=== PATIENT | female | born 1970 | race Caucasian/White ===

== ENCOUNTER 2018-04-23 14:50 | Emergency (ER) | payer OTHER ==
[~2018-04-23] VITALS: Ht 157.5 cm; Wt 90.0 kg
[~2018-04-23 14:50] MED LIST: ACETAMINOPHEN-1 EAC1 PO; ADVAIR 100-501 EACH INH; ADVAIR 250-501 EACH IH; ADVAIR 500-501 EACH INH; ADVAIR HFA 230M12 GM INH; ALBUTEROL INHAL17 GM IH; ALBUTEROL2.5 MG/0.1 INH; ALBUTEROL2.5 MG/0.5; ALPRAZOLAM ER1 MG PO; AMOXICILLIN500 M1 PO; ANUSOL-HC30 GM RC; ANUSOL1 EACH RC; ATENOLOL 50 MG50 M1 PO; ATENOLOL 50MG T50 MG PO; BACTRIM DS TAB1 EACH PO; BACTROBAN22 GM TP; CARISOPRODOL 3350 MG PO; CELEXA20 MG PO; CIPRO500 MG PO; CITRUCEL CLEAR539 G1 PO; CLEOCIN HCL300 MG PO; DELZICOL400 MG PO; DESYREL150 MG PO; DOXEPIN 10 MG C10 M1 PO; DOXYCYCLINE 10100 MG PO; ESKALITH300 MG; FLAGYL500 MG PO; FLEXERIL PO; HEMORRHOID OINT60 G1 RC; HIBICLENS120 ML TP; HYDROCODON-ACE1 EAC7 PO; HYDROCODONE-AP1 EAC6 PO; IBUPROFEN 800800 M1 PO; KEFLEX500 MG PO; LEVAQUIN 500 M500 M2 PO; LEVOTHYROXIN0.025 M1 PG; LEVOTHYROXIN0.025 MG PO; LISINOPRIL10 MG PO; LORTAB 5 MG/5001 TA1 PO; MEDROLDOSEPACK PO; NAPROSYN500 MG PO; NEW BP MED; NITRO-BID30 GM RECTAL; NOHOMEMEDICATIONS; NORCO 10-325 T1 EACH; NORCO 5-325 TA1 EAC1 PO; NORCO 5-325 TA1 EACH PO; NORFLEX100 MG PO; OXCARBAZEPINE; PENICILLIN VK250 MG PO; PENICILLIN VK500 M1 PO; PENICILLIN VK500 MG PO; PERCOCET 10-321 EACH PO; PERCOCET 5-3251 EACH PO; PRAZOSIN 1 MG CA1 M1 PO; PREDNISONE 10 M10 M1 PO; PREDNISONE 10 M10 MG PO; PREDNISONE 20 M20 M1 PO; PREDNISONE 20 M20 MG PO; PROAIR HFA8.5 GM; PROAIR HFA8.5 GM INH; PROTONIX40 M1 PO; PROTONIX40 MG PO; PROVENTIL HFA6.7 G1 INH; ROBAXIN 750 MG750 M1 PO; SEREVENT DISKU50 MCG IH; SYMBICORT; SYNTHROID25 MCG PO; TESSALON PERLE100 MG PO; TIROSINT75 MCG PO; TOPAMAX 100 MG100 MG PO; TOPAMAX50 MG PO; TORADOL 10 MG T10 MG PO; TRAMADOL 50 MG50 MG PO; TRAZODONE 150150 M1 PO; ULTRAM 50MG TAB50 MG PO; VALIUM5 MG PO; VANCOCIN 125 M125 M1 PO; VENTOLIN HFA 1818 GM; VENTOLIN HFA 1818 GM INH; XANAX 0.25 MG0.25 MG PO; XANAX 0.5 MG0.5 MG PO; XANAX XR1 MG PO; XANAX1 MG PO; ZANTAC 150MG T150 M1 PO; ZANTAC 150MG T150 MG PO; ZOFRAN ODT4 MG PO; ZPAK PO; [UNRECOGNIZED DRUG - REMARK] PO
[2018-04-23 15:06] LABS: ABSOLUTE EOSINOPHILS 0.2 thou/uL (0.0-0.7); EOSINOPHILS 3.7 %; HEMOGLOBIN 13.6 gm/dL (12.0-15.0); MCH 31.3 pg (26.0-34.0)
[2018-04-23 15:08] LABS: ABSOLUTE BASOPHILS 0.1 thou/uL (0.0-0.2); ABSOLUTE LYMPHOCYTES 2.7 thou/uL (0.8-5.3); ABSOLUTE MONOCYTES 0.4 thou/uL (0.0-1.2); ABSOLUTE NEUTROPHILS 3.1 thou/uL (1.6-8.1); BASOPHILS 1.5 %; HEMATOCRIT 40.8 % (37.0-47.0); LYMPHOCYTES 41.8 %; MCHC 33.3 g/dL (28.0-37.0); MCV 93.9 fL (80.0-100.0); MONOCYTES 5.7 %; MPV 8.1 fl. (7.2-11.1); NUCLEATED RBCS 0 /100WBC; PLATELET COUNT* 156 thou/uL (150-400); POLYS 47.3 %; RBC 4.35 mil/uL (4.20-5.00); RDW-CV 17.2 % (10.5-14.5); WBC 6.6 thou/uL (4.0-11.0)
[2018-04-23 15:12] LABS: CALCIUM 8.7 mg/dL (8.5-10.1); CREATININE 0.6 mg/dL (0.6-1.3); POTASSIUM 4.4 mmol/L (3.5-5.1)
[2018-04-23 15:26] LABS: URINE BILIRUBIN NEGATIVE (Negative); URINE BLOOD NEGATIVE (Negative); URINE CLARITY CLEAR; URINE COLOR YELLOW; URINE GLUCOSE-RANDOM NEGATIVE (Negative); URINE KETONES NEGATIVE (Negative); URINE LEUKOCYTES-REFLEX NEGATIVE (Negative); URINE NITRITE-REFLEX NEGATIVE (Negative); URINE PROTEIN NEGATIVE (Negative)
[2018-04-23 15:28] LABS: ALBUMIN 3.6 g/dL (3.4-5.0); TOTAL BILIRUBIN 0.4 mg/dL (<0.1-1.0); TOTAL PROTEIN 6.7 g/dL (6.4-8.2)
[2018-04-23 15:31] LABS: AMP/METHAMP Negative (Negative); BARBITURATES Negative (Negative); BENZODIAZEPINES POSITIVE (Negative); COCAINE Negative (Negative); METHADONE Negative (Negative); OPIATES Negative (Negative); PCP Negative (Negative); THC Negative (Negative)
[2018-04-23 20:03] VITALS: BP 125/72
--- NOTE | 2018-04-24 11:21 | EKG ---
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1970 Requested By: Sangeeta Hutchinson Order Number: [id number] MD: Jacoby Lewis Measurements Intervals [place] Rate: 69 P: -20 KS: 152 QRS: 210 QRSD: 98 T: 29 QT: 386 QTc: 414 Interpretive Statements Sinus rhythm Anterior infarct, age indeterminate Lateral leads are also involved Compared to ECG 08/17/2015 18:41:34 Myocardial infarct finding now present Electronically Signed On 04-24-2018 11:20:59 INCLUSION [employer]UC[employer] TE[employer]ER by Jacoby Lewis [email or web address] <ELECTRONICALLY SIGNED> By: Jacoby Lewis MD, FAC 04/24/18 1120 [id number] [id number] Jacoby Lewis MD, [facility] /EPI
== END 2018-04-23 19:29 | disposition home or self-care (01) ==
LOC: M.ERS 14:50
PROVIDERS: Personal Emergency Response Attendant
DX: S60.211A Contusion of right wrist, initial encounter (principal); F10.129 Alcohol abuse with intoxication, unspecified; M25.561 Pain in right knee; Y04.8XXA Assault by other bodily force, initial encounter; Y93.89 Activity, other specified; Y92.89 Other specified places as the place of occurrence of the external cause; Y99.8 Other external cause status; I10 Essential (primary) hypertension; J44.9 Chronic obstructive pulmonary disease, unspecified; G43.909 Migraine, unspecified, not intractable, without status migrainosus; M79.7 Fibromyalgia; K50.90 Crohn's disease, unspecified, without complications; F31.9 Bipolar disorder, unspecified; E11.9 Type 2 diabetes mellitus without complications; Z90.49 Acquired absence of other specified parts of digestive tract; Z90.710 Acquired absence of both cervix and uterus; Z98.890 Other specified postprocedural states; F17.210 Nicotine dependence, cigarettes, uncomplicated; Z88.6 Allergy status to analgesic agent; Z88.8 Allergy status to other drugs, medicaments and biological substances

== ENCOUNTER 2019-09-17 16:22 | Emergency (ER) | payer MEDICAID ==
[~2019-09-17] VITALS: Ht 175.3 cm; Wt 106.6 kg
[~2019-09-17 16:22] MED LIST changes: +CLEOCIN HCL150 MG PO
[2019-09-17 16:45] LABS: ABSOLUTE BASOPHILS 0.1 thou/uL (0.0-0.2); ABSOLUTE EOSINOPHILS 0.2 thou/uL (0.0-0.7); ABSOLUTE LYMPHOCYTES 2.4 thou/uL (0.8-5.3); ABSOLUTE MONOCYTES 0.7 thou/uL (0.0-1.2); ABSOLUTE NEUTROPHILS 4.5 thou/uL (1.6-8.1); EOSINOPHILS 2.4 %; HEMATOCRIT 36.4 % (37.0-47.0); HEMOGLOBIN 12.3 gm/dL (12.0-15.0); MCH 28.7 pg (26.0-34.0); MCHC 33.9 g/dL (28.0-37.0); MCV 84.7 fL (80.0-100.0); MONOCYTES 8.5 %; MPV 7.3 fl. (7.2-11.1); NUCLEATED RBCS 0 /100WBC; PLATELET COUNT* 236 thou/uL (150-400); POLYS 57.1 %; RDW-CV 19.6 % (10.5-14.5); WBC 7.9 thou/uL (4.0-11.0)
[2019-09-17 16:57] LABS: APTT 27.1 Seconds (25.0-31.3); CALCIUM 8.3 mg/dL (8.5-10.1); CREATININE 0.7 mg/dL (0.6-1.3); INR 0.9; POTASSIUM 4.1 mmol/L (3.5-5.1); PROTIME 9.3 Seconds (9.20-11.50)
[2019-09-17 17:08] LABS: ALBUMIN 3.4 g/dL (3.4-5.0); TOTAL BILIRUBIN 0.2 mg/dL (<0.1-1.0); TOTAL PROTEIN 6.9 g/dL (6.4-8.2)
[2019-09-17 17:38] VITALS: BP 126/71
[2019-09-17] MEDS ORDERED: LEVAQUIN 500 M500 MG PO (17:41)
--- NOTE | 2019-09-18 10:45 | EKG ---
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[employer] : 1970 Requested By: Esdars Knott Order Number: [id number] MD: Celso Venegas Measurements Intervals [place] Rate: 87 P: 18 CT: 143 QRS: -69 QRSD: 89 T: 23 QT: 359 QTc: 432 Interpretive Statements Sinus rhythm Inferior infarct, old Anterior infarct, old Compared to ECG 04/23/2018 14:57:46 No significant changes Electronically Signed On 09-18-2019 10:44:16 CDT by Celso Venegas [email or web address] <ELECTRONICALLY SIGNED> By: Celso Venegas MD, [facility] 09/18/19 1044 1643 1643 Celso Venegas MD, [facility] /EPI
== END 2019-09-17 17:41 | disposition left against medical advice (07) ==
LOC: M.ERS 16:22
PROVIDERS: Family Medicine
DX: J18.9 Pneumonia, unspecified organism (principal); R07.81 Pleurodynia; F10.129 Alcohol abuse with intoxication, unspecified; Y90.7 Blood alcohol level of 200-239 mg/100 ml; I10 Essential (primary) hypertension; J44.9 Chronic obstructive pulmonary disease, unspecified; G43.909 Migraine, unspecified, not intractable, without status migrainosus; M79.7 Fibromyalgia; K21.9 Gastro-esophageal reflux disease without esophagitis; E11.9 Type 2 diabetes mellitus without complications; K50.90 Crohn's disease, unspecified, without complications; F17.210 Nicotine dependence, cigarettes, uncomplicated; Z88.6 Allergy status to analgesic agent; Z88.8 Allergy status to other drugs, medicaments and biological substances; Z90.710 Acquired absence of both cervix and uterus; Z90.49 Acquired absence of other specified parts of digestive tract; Z98.890 Other specified postprocedural states; Z79.899 Other long term (current) drug therapy